=== PATIENT | female | born 2000 | race Two or more races ===

== ENCOUNTER 2024-03-14 13:32 | Emergency (ER) | payer OTHER ==
[~2024-03-14] VITALS: Ht 167.6 cm; Wt 47.6 kg
[2024-03-14 16:24] LABS: HEMATOCRIT 42.1 % (36.0-45.00); HEMOGLOBIN 14.3 g/dL (12.0-15.00); MEAN CELL VOLUME 88.8 fL (80.00-100.00); MEAN CORPUSCULAR HEMOGLOBIN 30.1 pg (27.00-32.0); MEAN CORPUSCULAR HGB CONC 33.9 g/dl (32.0-36.0); PLATELET COUNT 279 K/uL (150-450); RED BLOOD COUNT 4.74 M/uL (4.00-6.00); RED CELL DISTRIBUTION WIDTH 13.9 % (11.5-14.5)
[2024-03-14 16:26] LABS: PH,URINE 6.5 (5.0-8.0); URINE APPEARANCE Cloudy; URINE BILIRRUBIN Negative (NEGATIVE); URINE BLOOD Moderate; URINE COLOR Yellow; URINE GLUCOSE Negative (NEGATIVE); URINE LEUKOCYTE Large; URINE NITRATE Positive; URINE PROTEIN Trace (NEGATIVE); URINE UROBILINOGEN 0.2 E.U./dl
[2024-03-14 16:27] LABS: URINE EPITHELIAL CELLS 5.4 uL (0.0-38.8); URINE WBC 2441.6 uL (0.0-23.2)
[2024-03-14 16:45] LABS: URINE BACTERIA > 9821.5 uL (0.0-1933)
[2024-03-14 17:05] LABS: CALCIUM 9.2 mg/dL (8.5-10.1); CREATININE SERUM 0.54 mg/dL (0.55-1.02); GFR 138.7; POTASSIUM 3.86 mEq/L (3.5-5.1)
[2024-03-14] MEDS ORDERED: KETOROLAC TROMETHAMINE 60 MG VIAL IM STA (19:26)
[2024-03-14] MEDS ORDERED: KETOROLAC TROMETHAMINE 60 MG VIAL IM ONE (19:31)
== END 2024-03-14 19:40 | disposition home or self-care (01) ==
LOC: ER 13:33
PROVIDERS: General Practice
DX: M94.0 Chondrocostal junction syndrome [Tietze] (principal); R10.31 Right lower quadrant pain; N39.0 Urinary tract infection, site not specified